=== PATIENT | female | born 1985 | race Caucasian/White ===

== ENCOUNTER 2017-12-27 22:35 | Emergency (ER) | payer MEDICAID, SELFPAY ==
[2017-12-27 23:04] VITALS: BP 151/71; PULSE 80; RESP 20; TEMP 37.1; O2SAT 99; BMI 44.2
[2017-12-27 23:32] VITALS: BP 155/74; PULSE 102; RESP 18; TEMP 36.8; O2SAT 98
--- NOTE | 2017-12-27 23:51 | HMH.EDGENADL ---
ED Disposition Clinical Impression: Pharyngitis Qualifiers: Pharyngitis/tonsillitis etiology: unspecified etiology Qualified Code(s): J02.9 - Acute pharyngitis, unspecified Disposition: Home, Self-Care Condition on Discharge: Good Instructions: DI for Pharyngitis/Tonsillopharyngitis -- Adult Additional Instructions: use meds and see pcp for follow up Prescriptions: cephALEXin [Keflex 500mg Cap] 500 mg PO TID #21 cap - Critical Care Critical Care Time: No Attestation: On 12/27/17, the high probability of a clinically significant, sudden or life threatening deterioration of the following system(s) required my full and direct attention, intervention and personal management. The time I documented below is in addition to time spent performing reported procedures but includes the following listed in this critical care notation. Medical Decision Making - Medical Records Medical records reviewed: Yes: I reviewed the patient's medical records. Vital Signs: 12/27/17 23:04 12/27/17 23:32 Temperature 98.8 F 98.2 F Temperature Source Oral Oral Pulse Rate [Right Radial] 80 102 H Respiratory Rate 20 18 Blood Pressure [Right Arm] 151/71 155/74 Blood Pressure Mean [Right Arm] 97 101 Blood Pressure Source [Right Arm] Automatic Cuff Blood Pressure Position [Right Arm] Sitting 02 Sat by Pulse Oximetry 99 98 Oxygen Delivery Method Room Air - Lab Data Lab results reviewed: Yes: I reviewed the patient's lab results. Lab Results 12/27/17 23:45: Influenza Type A Ag Negative, Influenza Type B Ag Negative, Group A Strep Rapid Negative Orders (Tests/Meds): ED MEDICATIONS Generic Name Dose Route Start Last Admin Trade Name Freq PRN Reason Stop Dose Admin Prednisone 20 mg 12/28/17 00:10 Deltasone 20mg Tablet PO 12/28/17 00:11 ONCE ONE Discontinued Medications Generic Name Dose Route Start Last Admin Trade Name Freq PRN Reason Stop Dose Admin Cephalexin HCl 500 mg 12/28/17 00:09 Cephalexin 500mg Capsule PO 12/28/17 00:10 ONCE ONE Protocol ORDERS Category Date Time Status Strep Screen Confirmation Stat Micro 12/27/17 23:45 Received - Billy Inquiry Pt receiving controlled substance: No General Adult HPI - General Chief complaint: PAIN Stated complaint: sore throat Time Seen by Provider: 12/27/17 23:51 Mode of Arrival: Ambulatory Source of Information: Patient, Medical Record Limitations: No Limitations Description of Symptoms (Recalled from ER Triage Doc. by RN): SORE THROAT, BILATERAL EAR PAIN X 2 DAYS - History of Present Illness HPI narrative: sore throat with no cough or rash over the last 2 days Onset (ago): day(s) Severity: moderate - Related Data Previous Rx's Medication Instructions Recorded cephALEXin [Keflex 500mg Cap] 500 mg PO TID #21 cap 12/28/17 Allergies Allergy/AdvReac Type Severity Reaction Status Date / Time sulfamethoxazole Allergy Intermediate Hives Verified 12/27/17 23:02 [From Bactrim] trimethoprim [From Bactrim] Allergy Intermediate Hives Verified 12/27/17 23:02 [facility] History I have reviewed the patient's past medical history: Yes Medical History: Denies:: Cancer, Diabetes Mellitus Type 1, Diabetes Mellitus Type 2, MRSA Amputation: No Fractures: No - Social History Smoking Status: Never smoker Alcohol Intake: never - Psychiatric History Expresses thoughts of harming self/others: None Suicide Plan Description: No Plan ROS Obtained: Yes All systems reviewed & no additional complaints - Constitutional Constitutional: Denies fever(s) - Eyes Eyes: Denies change in vision - ENT Ears, Nose, Mouth, and Throat: Reports otalgia, Denies hearing loss, Reports sore throat - Cardiovascular Cardiovascular: Denies chest pain at rest, Denies dyspnea - Respiratory Respiratory: No cough - Gastrointestinal Gastrointestingal: Denies: abdominal pain - Musculoskeletal Musculoskeletal: Denie
[2017-12-27 23:57] LABS: Strep Scrn Group A (Rapid) Negative (Negative)
[2017-12-28 00:29] VITALS: BP 134/74; PULSE 78; RESP 20; TEMP 37.1; O2SAT 97
== END 2017-12-28 00:30 | disposition home or self-care (01) ==
PROVIDERS: Emergency Provider Emergency Medicine
DX: J02.9 Acute pharyngitis, unspecified (principal); Z88.2 Allergy status to sulfonamides
CPT/HCPCS: 87275; 87276; 87430; 99283

== ENCOUNTER 2018-04-19 03:50 | Emergency (ER) | payer MEDICAID, SELFPAY ==
[2018-04-19 03:59] VITALS: BP 140/79; PULSE 82; RESP 16; TEMP 36.7; O2SAT 100; BMI 46.6
--- NOTE | 2018-04-19 04:02 | XR_ITS ---
XR hip RT 2-3V w/pelvis HISTORY: Posttraumatic pain ITS.REASON: fall ORDERING PHYSICIAN: Diego Knight MD PATIENT AGE: 33 years COMPARISON: None FINDINGS: No fracture or dislocation is evident. No significant degenerative change. No lytic or blastic change. Unremarkable soft tissues. Bilateral tubal occlusion devices are noted IMPRESSION: Negative hip
--- NOTE | 2018-04-19 04:02 | XR_ITS ---
XR knee RT 3V HISTORY: Posttraumatic pain ITS.REASON: fall ORDERING PHYSICIAN: Diego Knight MD PATIENT AGE: 33 years COMPARISON: None FINDINGS: No fracture or dislocation. No lytic or blastic change. Normal mineralization. No significant arthritic changes evident. No other significant findings IMPRESSION: Negative Knee
--- NOTE | 2018-04-19 04:27 | HMH.EDLOEX ---
ED Disposition Clinical Impression: Right knee sprain Qualifiers: Encounter type: initial encounter Involved ligament of knee: unspecified ligament Qualified Code(s): S83.91XA - Sprain of unspecified site of right knee, initial encounter Contusion of hip, right Qualifiers: Encounter type: initial encounter Qualified Code(s): S70.01XA - Contusion of right hip, initial encounter Disposition: Home, Self-Care Condition on Discharge: Good Instructions: Sprain Additional Instructions: ice and nsaif and see pcp for follow up and wt bearing as sukhdeep - Critical Care Critical Care Time: No Attestation: On 04/19/18, the high probability of a clinically significant, sudden or life threatening deterioration of the following system(s) required my full and direct attention, intervention and personal management. The time I documented below is in addition to time spent performing reported procedures but includes the following listed in this critical care notation. Medical Decision Making - Medical Records Medical records reviewed: Yes: I reviewed the patient's medical records. - Billy Inquiry Pt receiving controlled substance: No Vital Signs: 04/19/18 03:59 Temperature 98.1 F Temperature Source Oral Pulse Rate [Right Brachial] 82 Respiratory Rate 16 Blood Pressure [Right Arm] 140/79 Blood Pressure Mean [Right Arm] 99 02 Sat by Pulse Oximetry 100 Orders (Tests/Meds): ORDERS Category Date Time Status XR hip RT 2-3V w/pelvis Stat Exams 04/19/18 04:02 Taken XR knee RT 3V Stat Exams 04/19/18 04:02 Taken - Radiology Data #2 Image(s): Pelvis, Hip, Knee Image Reviewed: Yes I reviewed the patient's radiology image Preliminary Findings: No Fracture Seen Lower Extremity Injury HPI - General Chief Complaint: Extremity Injury, Lower Stated Complaint: Fall at Home 04/18 1830 Injured rt leg Time Seen by Provider: 04/19/18 04:27 Mode of Arrival: Wheelchair Source of Information: Patient, Significant Other, Medical Record Limitations: No Limitations Description of Symptoms (Recalled from ER Triage Doc. by RN): Chasing after her son around 1829 yesterday and tripped and fell in the pool. Now c/o right hip and right knee pain. - History of Present Illness HPI Narrative: after fall with rt knee and hip pain worse with ext and wt bearing MD complaint: hip injury, knee injury, fall Onset (ago): hour(s) Injury: Right: hip, knee Type of Injury: blunt Place: home Severity: moderate Exacerbating factors: weight bearing, movement Context: fall Associated symptoms: able to partially bear weight Other symptoms: none - Related Data Home Medications Medication Instructions Recorded Confirmed No Known Home Medications 04/19/18 04/19/18 Allergies Allergy/AdvReac Type Severity Reaction Status Date / Time sulfamethoxazole Allergy Intermediate Hives Verified 12/27/17 23:02 [From Bactrim] trimethoprim [From Bactrim] Allergy Intermediate Hives Verified 12/27/17 23:02 [facility] History I have reviewed the patient's past medical history: Yes Medical History: Denies:: Cancer, Diabetes Mellitus Type 1, Diabetes Mellitus Type 2, MRSA Amputation: No Fractures: No - Social History Smoking Status: Current every day smoker Alcohol Intake: never - Psychiatric History Expresses thoughts of harming self/others: None Suicide Plan Description: No Plan ROS Obtained: Yes All systems reviewed & no additional complaints - Constitutional Constitutional: Denies fever(s) - Eyes Eyes: Denies change in vision - ENT Ears, Nose, Mouth, and Throat: Denies sore throat - Cardiovascular Cardiovascular: Denies chest pain - Respiratory Respiratory: No cough - Gastrointestinal Gastrointestingal: Denies: abdominal pain - Genitourinary Female Genitourinary: Denies hematuria - Musculoskeletal Musculoskeletal: Reports as per HPI, Reports joint pain, Reports joint swelling, Reports limited range of abe
--- NOTE | 2018-04-19 04:30 | ED_ITS ---
ED Disposition Clinical Impression: Right knee sprain Qualifiers: Encounter type: initial encounter Involved ligament of knee: unspecified ligament Qualified Code(s): S83.91XA - Sprain of unspecified site of right knee , initial encounter Contusion of hip, right Qualifiers: Encounter type: initial encounter Qualified Code(s): S70.01XA - Contusion of right hip, initial encounter Disposition: Home, Self-Care Condition on Discharge: Good Instructions: Sprain Additional Instructions: ice and nsaif and see pcp for follow up and wt bearing as sukhdeep - Critical Care Critical Care Time: No Attestation: On 04/19/18, the high probability of a clinically significant, sudden or life threatening deterioration of the following system(s) required my full and direct attention, intervention and personal management. The time I documented below is in addition to time spent performing reported procedures but includes the following listed in this critical care notation. Medical Decision Making - Medical Records Medical records reviewed: Yes: I reviewed the patient's medical records. - Billy Inquiry Pt receiving controlled substance: No Vital Signs: 04/19/18 03:59 Temperature 98.1 F Temperature Source Oral Pulse Rate [Right Brachial] 82 Respiratory Rate 16 Blood Pressure [Right Arm] 140/79 Blood Pressure Mean [Right Arm] 99 02 Sat by Pulse Oximetry 100 Orders (Tests/Meds): ORDERS Category Date Time Status XR hip RT 2-3V w/pelvis Stat Exams 04/19/18 04:02 Taken XR knee RT 3V Stat Exams 04/19/18 04:02 Taken - Radiology Data #2 Image(s): Pelvis, Hip, Knee Image Reviewed: Yes I reviewed the patient's radiology image Preliminary Findings: No Fracture Seen Lower Extremity Injury HPI - General Chief Complaint: Extremity Injury, Lower Stated Complaint: Fall at Home 04/18 1830 Injured rt leg Time Seen by Provider: 04/19/18 04:27 Mode of Arrival: Wheelchair Source of Information: Patient, Significant Other, Medical Record Limitations: No Limitations Description of Symptoms (Recalled from ER Triage Doc. by RN): Chasing after her son around 1829 yesterday and tripped and fell in the pool. Now c/o right hip and right knee pain. - History of Present Illness HPI Narrative: after fall with rt knee and hip pain worse with ext and wt bearing MD complaint: hip injury, knee injury, fall Onset (ago): hour(s) Injury: Right: hip, knee Type of Injury: blunt Place: home Severity: moderate Exacerbating factors: weight bearing, movement Context: fall Associated symptoms: able to partially bear weight Other symptoms: none - Related Data Home Medications Medication Instructions Recorded Confirmed No Known Home Medications 04/19/18 04/19/18 Allergies Allergy/AdvReac Type Severity Reaction Status Date / Time sulfamethoxazole Allergy Intermediate Hives Verified 12/27/17 23:02 [From Bactrim] trimethoprim [From Bactrim] Allergy Intermediate Hives Verified 12/27/17 23:02 [facility] History I have reviewed the patient's past medical history: Yes Medical History: Denies:: Cancer, Diabetes Mellitus Type 1, Diabetes Mellitus Type 2, MRSA Amputation: No Fractures: No - Social History Smoking Status: Current every day smoker Alcohol Intake: never - Psychi
[2018-04-19 04:39] VITALS: BP 134/84; PULSE 87; RESP 16; TEMP 36.9; O2SAT 99
== END 2018-04-19 04:39 | disposition home or self-care (01) ==
PROVIDERS: Emergency Provider Emergency Medicine
DX: S83.91XA Sprain of unspecified site of right knee, initial encounter (principal); S70.01XA Contusion of right hip, initial encounter; W01.0XXA Fall on same level from slipping, tripping and stumbling without subsequent striking against object, initial encounter; Y93.11 Activity, swimming; Y92.016 Swimming-pool in single-family (private) house or garden as the place of occurrence of the external cause
CPT/HCPCS: 73502; 73562; 99282

== ENCOUNTER → 2018-08-16 13:48 | Outpatient (REF) | payer MEDICAID, SELFPAY ==
[2018-08-16 14:16] LABS: Basophils # 0.1 K/mm3 (0-0.2); Basophils % 0.8 % (0.1-2.0); Eosinophils # 0.3 K/mm3 (0.0-0.4); Eosinophils % 3.9 % (0.1-12.0); Hematocrit 42.1 % (37.0-47.0); Hemoglobin 13.4 g/dL (12.2-16.2); Lymphocytes # 2.2 K/mm3 (0.7-4.5); Lymphocytes % 33.4 K/mm3 (10-50); Mean Corpuscular HGB Conc 31.9 g/dL (31.8-35.4); Mean Corpuscular Volume 87.9 fl (81-99); Mean Platelet Volume 7.1 fl (7.4-10.4); Monocytes # 0.4 K/mm3 (0.1-1.0); Monocytes % 6.1 % (1.7-9.3); Neutrophils # 3.7 K/mm3 (1.8-7.8); Neutrophils % 55.8 % (37.0-80.0); Platelet Count 359 K/mm3 (142-424); Red Blood Count 4.78 M/mm3 (4.20-5.40); Red Cell Distribution Width 13.4 % (11.5-17.5); White Blood Count 6.7 K/mm3 (4.8-10.8)
[2018-08-16 14:36] LABS: Alanine Aminotransferase 33 U/L (12-78); Albumin Level 3.8 gm/dL (3.4-5.0); Alkaline Phosphatase 83 U/L (46-116); Anion Gap 13.1 mEq/L (5-15); Aspartate Amino Transferase 23 U/L (15-37); Bilirubin,Total 0.6 mg/dL (0.2-1.0); Blood Urea Nitrogen 7 mg/dL (7-18); Calcium 8.9 mg/dL (8.5-10.1); Carbon Dioxide 28 mmol/L (21.0-32.0); Chloride 103 mmol/L (98-107); Chol/HDL Ratio 3.9 (1-3.5); Cholesterol 156 mg/dL (140-200); Creatinine,Serum 0.64 mg/dL (0.55-1.02); Estimated Glomerular Filt Rate 106 ml/min (>60); GFR (African American) 128 ML/MIN (>60); Globulin 3.8 gm/dl (1.3-3.2); Glucose 95 mg/dL (74-106); HDL Cholesterol 40 mg/dL (29-89); LDL Cholesterol 101 mg/dL (0-130); Potassium 4.1 mmoL/L (3.5-5.1); Sodium 140 mmol/L (136-145); T4 (Thyroxine) 8.3 ug/dl (4.7-13.3); Thyroid Stimulating Hormone 1.64 uIU/ml (0.358-3.740); Total Protein,Serum 7.6 gm/dL (6.4-8.2); Triglycerides 77 mg/dL (30-200); VLDL Cholesterol 15 mg/dL (0-40)
[2018-08-16 15:07] LABS: Hemoglobin A1C 5.6 % (0.0-7.0)
[2018-08-17 15:57] LABS: Vitamin D 25 Hydroxy 22.2 ng/mL (30.0-100.0)
== END ==
LOC: LAB 13:48
PROVIDERS: Visit Provider Nurse Practitioner Family
DX: R53.83 Other fatigue (principal); E55.9 Vitamin D deficiency, unspecified
CPT/HCPCS: 80053; 80061; 82652; 83036; 84436; 84443; 85025

== ENCOUNTER 2019-03-20 16:44 | Emergency (ER) | payer MEDICAID, SELFPAY ==
[2019-03-20 17:04] VITALS: BP 141/75; PULSE 89; RESP 18; TEMP 36.9; O2SAT 97; BMI 47.5
--- NOTE | 2019-03-20 17:05 | HMH.EDGENADL ---
ED Disposition Clinical Impression: Lower extremity edema Disposition: Home, Self-Care Condition on Discharge: Good Prescriptions: Furosemide [Lasix 20mg tab] 20 mg PO DAILY 30 Days #30 tab Referrals: Provider,Referral, MD [Primary Care Provider] - Time of Disposition: 19:39 - Critical Care Critical Care Time: No Attestation: On 03/20/19, the high probability of a clinically significant, sudden or life threatening deterioration of the following system(s) required my full and direct attention, intervention and personal management. The time I documented below is in addition to time spent performing reported procedures but includes the following listed in this critical care notation. Medical Decision Making - Medical Records Medical records reviewed: Yes: I reviewed the patient's medical records. - Billy Inquiry Pt receiving controlled substance: No Billy was queried for this patient: No Vital Signs: 03/20/19 17:04 Temperature 98.5 F Temperature Source Oral Pulse Rate [Left Radial] 89 Respiratory Rate 18 Blood Pressure [Right Arm] 141/75 H Blood Pressure Mean [Right Arm] 97 Blood Pressure Source [Right Arm] Automatic Cuff Blood Pressure Position [Right Arm] Sitting 02 Sat by Pulse Oximetry 97 Oxygen Delivery Method Room Air - Lab Data Lab results reviewed: Yes: I reviewed the patient's lab results. Lab Results 03/20/19 18:06: WBC 7.4, RBC 4.27, Hgb 12.0 L, Hct 36.3 L, MCV 85.1, MCH 28.2, MCHC 33.1, RDW 13.4, Plt Count 291, MPV 6.5 L, Neut % (Auto) 56.1, Lymph % (Auto) 31.7, [place] % (Auto) 7.3, Eos % (Auto) 4.2, Baso % (Auto) 0.6, Neut # (Auto) 4.2, Lymph # (Auto) 2.4, [place] # (Auto) 0.5, Eos # (Auto) 0.3, Baso # (Auto) 0.1 03/20/19 18:06: Sodium 140, Potassium 3.8, Chloride 106, Carbon Dioxide 27, Anion Gap 10.8, BUN 11, Creatinine 0.69, Estimated Creat Clear 89, Estimated GFR 96, Est GFR ( Amer) 116, Glucose 93, Calcium 8.4 L, Total Bilirubin 0.4, AST 13 L, ALT 28, Alkaline Phosphatase 73, Total Protein 7.0, Albumin 3.2 L, Globulin 3.8 H, Albumin/Globulin Ratio 0.8 L Result diagrams: 03/20/19 18:06 03/20/19 18:06 Orders (Tests/Meds): ED MEDICATIONS Generic Name Dose Route Start Last Admin Trade Name Kristen PRN Reason Stop Dose Admin Furosemide 20 mg 03/21/19 09:00 Lasix 20mg Tablet PO 04/20/19 08:59 DAILY CAPRICE General Adult HPI - General Stated complaint: fEET SWOLLEN Time Seen by Provider: 03/20/19 17:05 Mode of Arrival: Ambulatory Source of Information: Patient Limitations: No Limitations - Related Data Home Medications Medication Instructions Recorded Confirmed albuterol sulfate HFA 90 2 puff INHALATION Q6H PRN 08/16/18 03/20/19 mcg/actuation aerosol inhaler Ergocalciferol (Vitamin D2) 50,000 unit PO QWEEK 12/25/18 03/20/19 [Drisdol] Previous Rx's Medication Instructions Recorded Furosemide [Lasix 20mg tab] 20 mg PO DAILY 30 Days #30 tab 03/20/19 Allergies Allergy/AdvReac Type Severity Reaction Status Date / Time sulfamethoxazole Allergy Intermediate Hives Verified 10/24/18 19:01 [From Bactrim] trimethoprim [From Bactrim] Allergy Intermediate Hives Verified 10/24/18 19:01 [facility] History - Hepatitis A Screen Attestation statement:: This patient has been screened for Hepatitis A risk factors. I have reviewed the patient's past medical history: Yes Medical History: Reports:: Asthma, Depression, Heart Murmur Denies:: Cancer, Diabetes Mellitus Type 1, Diabetes Mellitus Type 2, MRSA, Pulmonary Embolism, Seizures Laterality Cases: Bilateral: Carpal Tunnel Release Other Surgeries: Yes: Other Amputation: No Fractures: No Comment: Right foot. - Social History Smoking Status: Never smoker Alcohol Intake: never Substance Use Type: denies use Occupational Status: unemployed Housing: house - Psychiatric History Pschychiatric History:: Reports:: Depression Family Hx:: Heart Attack, Hypertension, Hyperlipidemia, Str
--- NOTE | 2019-03-20 17:16 | ED_ITS ---
ED Disposition Clinical Impression: Lower extremity edema Disposition: Home, Self-Care Condition on Discharge: Good Prescriptions: Furosemide [Lasix 20mg tab] 20 mg PO DAILY 30 Days #30 tab Referrals: Provider,Referral, [Primary Care Provider] - Time of Disposition: 19:39 - Critical Care Critical Care Time: No Attestation: On 03/20/19, the high probability of a clinically significant, sudden or life threatening deterioration of the following system(s) required my full and direct attention, intervention and personal management. The time I documented below is in addition to time spent performing reported procedures but includes the follo wing listed in this critical care notation. Medical Decision Making - Medical Records Medical records reviewed: Yes: I reviewed the patient's medical records. - Billy Inquiry Pt receiving controlled substance: No Billy was queried for this patient: No Vital Signs: 03/20/19 17:04 Temperature 98.5 F Temperature Source Oral Pulse Rate [Left Radial] 89 Respiratory Rate 18 Blood Pressure [Right Arm] 141/75 H Blood Pressure Mean [Right Arm] 97 Blood Pressure Source [Right Arm] Automatic Cuff Blood Pressure Position [Right Arm] Sitting 02 Sat by Pulse Oximetry 97 Oxygen Delivery Method Room Air - Lab Data Lab results reviewed: Yes: I reviewed the patient's lab results. Lab Results 03/20/19 18:06: WBC 7.4, RBC 4.27, Hgb 12.0 L, Hct 36.3 L, MCV 85.1, MCH 28.2, MCHC 33.1, RDW 13.4, Plt Count 291, MPV 6.5 L, Neut % (Auto) 56.1, Lymph % (Auto) 31.7, [place] % (Auto) 7.3, Eos % (Auto) 4.2, Baso % (Auto) 0.6, Neut # (Auto) 4.2, Lymph # (Auto) 2.4, [place] # (Auto) 0.5, Eos # (Auto) 0.3, Baso # (Auto) 0.1 03/20/19 18:06: Sodium 140, Potassium 3.8, Chloride 106, Carbon Dioxide 27, Anion Gap 10.8, BUN 11, Creatinine 0.69, Estimated Creat Clear 89, Estimated GFR 96, Est GFR ( Amer) 116, Glucose 93, Calcium 8.4 L, Total Bilirubin 0.4, AST 13 L, ALT 28, Alkaline Phosphatase 73, Total Protein 7.0, Albumin 3.2 L, Globulin 3.8 H, Albumin/Globulin Ratio 0.8 L Result diagrams: 03/20/19 18:06 03/20/19 18:06 Orders (Tests/Meds): ED MEDICATIONS Generic Name Dose Route Start Last Admin Trade Name Freq PRN Reason Stop Dose Admin Furosemide 20 mg 03/21/19 09:00 Lasix 20mg Tablet PO 04/20/19 08:59 DAILY CAPRICE General Adult HPI - General Stated complaint: fEET SWOLLEN Time Seen by Provider: 03/20/19 17:05 Mode of Arrival: Ambulatory Source of Information: Patient Limitations: No Limitations - Related Data Home Medications Medication Instructions Recorded Confirmed albuterol sulfate HFA 90 2 puff INHALATION Q6H PRN 08/16/18 03/20/19 mcg/actuation aerosol inhaler Ergocalciferol (Vitamin D2) 50,000 unit PO QWEEK 12/25/18 03/20/19 [Drisdol] Previous Rx's Medication Instructions Recorded Furosemide [Lasix 20mg tab] 20 mg PO DAILY 30 Days #30 tab 03/20/19 Allergies Allergy/AdvReac Type Severity Reaction Status Date / Time sulfamethoxazole Al
[2019-03-20 18:19] LABS: Basophils # 0.1 K/mm3 (0-0.2); Basophils % 0.6 % (0.1-2.0); Eosinophils # 0.3 K/mm3 (0.0-0.4); Eosinophils % 4.2 % (0.1-12.0); Hematocrit 36.3 % (37.0-47.0); Lymphocytes # 2.4 K/mm3 (0.7-4.5); Lymphocytes % 31.7 % (10-50); Mean Corpuscular HGB Conc 33.1 g/dL (31.8-35.4); Mean Corpuscular Hemoglobin 28.2 pg (27.0-31.2); Mean Corpuscular Volume 85.1 fl (81-99); Mean Platelet Volume 6.5 fl (7.4-10.4); Monocytes # 0.5 K/mm3 (0.1-1.0); Monocytes % 7.3 % (1.7-9.3); Neutrophils # 4.2 K/mm3 (1.8-7.8); Neutrophils % 56.1 % (37.0-80.0); Platelet Count 291 K/mm3 (142-424); Red Blood Count 4.27 M/mm3 (4.20-5.40); Red Cell Distribution Width 13.4 % (11.5-17.5); White Blood Count 7.4 K/mm3 (4.8-10.8)
[2019-03-20 18:41] LABS: Alanine Aminotransferase 28 U/L (12-78); Albumin Level 3.2 gm/dL (3.4-5.0); Albumin/Globulin Ratio 0.8 (1.1-1.8); Alkaline Phosphatase 73 U/L (46-116); Anion Gap 10.8 mEq/L (5-15); Aspartate Amino Transferase 13 U/L (15-37); Bilirubin,Total 0.4 mg/dL (0.2-1.0); Blood Urea Nitrogen 11 mg/dL (7-18); Calcium 8.4 mg/dL (8.5-10.1); Carbon Dioxide 27 mmol/L (21.0-32.0); Chloride 106 mmol/L (98-107); Creatinine Clearance Estimated 89 mL/min (50-200); Creatinine,Serum 0.69 mg/dL (0.55-1.02); Estimated Glomerular Filt Rate 96 ml/min (>60); GFR (African American) 116 ML/MIN (>60); Globulin 3.8 gm/dl (1.3-3.2); Glucose 93 mg/dL (74-106); Potassium 3.8 mmoL/L (3.5-5.1); Sodium 140 mmol/L (136-145)
[2019-03-20 19:45] VITALS: BP 138/73; PULSE 87; RESP 17; TEMP 36.9; O2SAT 98
[2019-03-20 19:48] VITALS: BP 129/74; PULSE 84; RESP 15; TEMP 37; O2SAT 96
== END 2019-03-20 19:48 | disposition home or self-care (01) ==
PROVIDERS: Emergency Provider Emergency Medicine
DX: R60.0 Localized edema (principal); J45.909 Unspecified asthma, uncomplicated; F33.1 Major depressive disorder, recurrent, moderate
CPT/HCPCS: 36415; 80053; 85025; 99282

== ENCOUNTER 2019-06-05 09:21 | Observation (INO) ==
[2019-06-05 09:51] LABS: Basophils % 0.4 % (0.1-2.0); Eosinophils # 0.4 K/mm3 (0.0-0.4); Hematocrit 39.1 % (37.0-47.0); Hemoglobin 12.6 g/dL (12.2-16.2); Lymphocytes # 1.6 K/mm3 (0.7-4.5); Mean Corpuscular HGB Conc 32.3 g/dL (31.8-35.4); Mean Corpuscular Volume 86.9 fl (81-99); Mean Platelet Volume 6.8 fl (7.4-10.4); Monocytes # 0.4 K/mm3 (0.1-1.0); Monocytes % 4.4 % (1.7-9.3); Neutrophils # 7.4 K/mm3 (1.8-7.8); Neutrophils % 75.1 % (37.0-80.0); Platelet Count 330 K/mm3 (142-424); Red Cell Distribution Width 13.7 % (11.5-17.5); White Blood Count 9.8 K/mm3 (4.8-10.8)
[2019-06-05 10:04] LABS: Anion Gap 12.6 mEq/L (5-15); Blood Urea Nitrogen 8 mg/dL (7-18); Calcium 8.7 mg/dL (8.5-10.1); Carbon Dioxide 27 mmol/L (21.0-32.0); Chloride 103 mmol/L (98-107); Glucose 121 mg/dL (74-106); Sodium 139 mmol/L (136-145)
--- NOTE | 2019-06-05 10:11 | Emergency Department Note ---
ED Disposition Clinical Impression: Pneumonia Disposition: Admitted as Observation Condition on Discharge: Fair Instructions: Pneumonia-Adult Referrals: Provider,Referral, [Primary Care Provider] - Time of Disposition: 11:09 - Critical Care Critical Care Time: No Attestation: On 06/05/19, the high probability of a clinically significant, sudden or life threatening deterioration of the following system(s) required my full and direct attention, intervention and personal management. The time I documented below is in addition to time spent performing reported procedures but includes the following listed in this critical care notation. Medical Decision Making - Medical Records Medical records reviewed: Yes: I reviewed the patient's medical records. - Billy Inquiry Pt receiving controlled substance: No Billy was queried for this patient: No Vital Signs: 06/05/19 09:24 06/05/19 09:44 06/05/19 10:03 Temperature 98.9 F Temperature Source Oral Pulse Rate 98 H Pulse Rate [Right Radial] 101 H 101 H Respiratory Rate 20 19 Blood Pressure [Right Arm] 131/85 95/40 L Blood Pressure Mean [Right Arm] 100 58 Blood Pressure Source [Right Arm] Automatic Cuff Automatic Cuff Blood Pressure Position [Right Arm] Sitting Sitting 02 Sat by Pulse Oximetry 95 95 Oxygen Delivery Method Room Air Room Air 06/05/19 11:05 Temperature Temperature Source Pulse Rate 104 H Pulse Rate [Right Radial] Respiratory Rate Blood Pressure [Right Arm] Blood Pressure Mean [Right Arm] Blood Pressure Source [Right Arm] Blood Pressure Position [Right Arm] 02 Sat by Pulse Oximetry Oxygen Delivery Method - Lab Data Lab results reviewed: Yes: I reviewed the patient's lab results. Lab Results 06/05/19 09:30: WBC 9.8, RBC 4.50, Hgb 12.6, Hct 39.1, MCV 86.9, MCH 28.1, MCHC 32.3, RDW 13.7, Plt Count 330, MPV 6.8 L, Neut % (Auto) 75.1, Lymph % (Auto) 16.0, [place] % (Auto) 4.4, Eos % (Auto) 4.0, Baso % (Auto) 0.4, Neut # (Auto) 7.4, Lymph # (Auto) 1.6, [place] # (Auto) 0.4, Eos # (Auto) 0.4, Baso # (Auto) 0.0 06/05/19 09:30: Sodium 139, Potassium 3.6, Chloride 103, Carbon Dioxide 27, Anion Gap 12.6, BUN 8, Creatinine 0.72, Estimated Creat Clear 85, Estimated GFR 92, Est GFR ( Amer) 111, Glucose 121 H, Calcium 8.7, Troponin I < 0.02 06/05/19 09:30: Lactate 1.4 Result diagrams: 06/05/19 09:30 06/05/19 09:30 Orders (Tests/Meds): ED MEDICATIONS Generic Name Dose Route Start Last Admin Trade Name Freq PRN Reason Stop Dose Admin Ceftriaxone Sodium 2 gm/ 50 mls @ 100 mls/hr 06/05/19 11:15 Sodium Chloride IV 06/19/19 11:14 Q24H [facility] Protocol Azithromycin 500 mg/ Sodium 250 mls @ 250 mls/hr 06/05/19 11:15 Chloride IV 06/19/19 11:14 Q24H [facility] Protocol Discontinued Medications Generic Name Dose Route Start Last Admin Trade Name Freq PRN Reason Stop Dose Admin Albuterol/Ipratropium 3 ml 06/05/19 09:33 06/05/19 09:42 Duoneb 3ml [facility] 06/05/19 09:34 3 ml ONCE ONE Administration Albuterol/Ipratropium 3 ml 06/05/19 10:52 06/05/19 11:05 Duoneb 3ml [facility] 06/05/19 10:53 3 ml ONCE ONE Administration Ketorolac Tromethamine 30 mg 06/05/19 10:14 06/05/19 10:21 Toradol 30mg/Ml Vial IV 06/05/19 10:15 30 mg ONCE ONE Administration Methylprednisolone Sodium Succinate 125 mg 06/05/19 10:14 06/05/19 10:21 Solu-Medrol 125mg/2ml Vial IV 06/05/19 10:15 125 mg ONCE ONE Administration Ondansetron HCl 8 mg 06/05/19 10:14 06/05/19 10:21 Zofran 4mg/2ml Vial IV 06/05/19 10:15 8 mg ONCE ONE Administration ORDERS Category Date Time Status Blood Culture Stat Micro 06/05/19 09:31 Received - Physician Consults Physician Consulted: alfredo Time: 11:08 Reason -: Admission General Adult HPI - General Chief complaint: Chest Pain Stated complaint: Chest Pain Time Seen by Provider: 06/05/19 10:12 Mode of Arrival: Ambulatory Source of Information: Patient Limitations: No Limitations Description of Symptoms (Recalled from ER Triage Doc. by RN): Pt reports began having productive cough yesterday, states became SOA feeling lastnight and woke up with chest pressure this morning. Pt denies fevers. - History of Present Illness HPI narrative: asthmatic all her life, now with flare which started with cough yesterday - Related Data Home Medications Medication Instructions Recorded Confirmed albuterol sulfate HFA 90 2 puff INHALATION Q6H PRN 08/16/18 03/20/19 mcg/actuation aerosol inhaler Ergocalciferol (Vitamin D2) 50,000 unit PO QWEEK 12/25/18 03/20/19 [Drisdol] Allergies Allergy/AdvReac Type Severity Reaction Status Date / Time sulfamethoxazole Allergy Intermediate Hives Verified 10/24/18 19:01 [From Bactrim] trimethoprim [From Bactrim] Allergy Intermediate Hives Verified 10/24/18 19:01 [facility] History - Hepatitis A Screen Drug use history?: No High risk sexual behaviors?: No History of sexually transmitted infection?: No Currently employed?: No Childcare worker?: No Do you have indoor plumbing?: Yes Do you have electricity?: Yes Attestation statement:: This patient has been screened for Hepatitis A risk factors. I have reviewed the patient's past medical history: Yes Medical History: Reports:: Asthma, Depression, Heart Murmur Denies:: Cancer, Diabetes Mellitus Type 1, Diabetes Mellitus Type 2, MRSA, Pulmonary Embolism, Seizures Laterality Cases: Bilateral: Carpal Tunnel Release Other Surgeries: Yes: Other Amputation: No Fractures: No Comment: Right foot. - Social History Smoking Status: Never smoker Alcohol Intake: never Substance Use Type: denies use Occupational Status: unemployed Housing: house - Psychiatric History Pschychiatric History:: Reports:: Depression Family Hx:: Heart Attack, Hypertension, Hyperlipidemia, Stroke, Diabetes ROS Obtained: Yes All systems reviewed & no additional complaints - Constitutional Constitutional: Reports chills, Denies fever(s) - Cardiovascular Cardiovascular: Denies chest pain, Denies chest pain at rest, Denies dyspnea - Respiratory Respiratory: Yes chest congestion, Yes cough, Yes dyspnea, Yes wheezing - Gastrointestinal Gastrointestingal: Reports: vomiting, other (immediately after solumedrol) - Musculoskeletal Musculoskeletal: Denies joint stiffness, Denies joint swelling - Integumentary/Breasts Skin/Breast: Denies rash, Denies skin pain - Neurologic Neurologic: Denies headache(s) - Hematologic/Lymphatic Henatologic/Lymphatic: Denies easy bleeding, Denies easy bruising Physical Exam - General General appearance: alert, in no apparent distress - Head Head exam: atraumatic, normocephalic, normal inspection - Eye Eye exam: Present: normal appearance, PERRL, EOMI - ENT ENT exam: Present: normal exam, normal oropharynx, mucous membranes moist, TM's normal bilaterally, normal external ear exam - Neck Neck exam: Present: normal inspection, full ROM, trachea midline. Absent: meningismus, lymphadenopathy - Chest Chest inspection: Present: normal inspection, symmetric chest wall rise. Abse nt: tenderness - Respiratory Respiratory exam: Present: wheezes. Absent: normal lung sounds bilaterally, respiratory distress, accessory muscle use - Cardiovascular Cardiovascular exam: Present: regular rate - Abdominal Exam Abdominal exam: Present: soft, normal bowel sounds. Absent: distention, tenderness, guarding - Extremities Exam Extremities exam: Present: normal inspection, full ROM, normal capillary refill, pedal edema, other (1+, negative kristofer's sign). Absent: calf tenderness - Back Exam Back exam: Present: normal inspection. Absent: tenderness - Neurological Exam Neurological exam: Present: alert, oriented X3 - Psychiatric Psychiatric exam: Present: normal affect, normal mood - Skin Skin exam: Present: warm, dry, intact, normal color
--- NOTE | 2019-06-05 14:36 | History & Physical Report ---
*Admission Date: 06/05/19 *Chief complaint: Cough/wheezing/shortness of air *History of present illness: 34-year-old white female with history of asthma, who has been treated with as needed albuterol nebulizer treatments over the past several years. She reports that she "used to take a daily inhaler" but apparently has not had 1 of these in a long time. She sees a primary physician in [place], [place] but has recently moved to [facility] and became short of air over the past couple of days at her home in spite of using her nebulizer machine a couple of times yesterday and this morning. She became very short of air today and came to the emergency department where she was found to have lobar pneumonia, dyspnea, tachycardia and asthma exacerbation and was admitted to the hospital. [facility] History I have reviewed the patient's past medical history: Yes Medical History: Reports:: Asthma, Depression, Heart Murmur Denies:: Cancer, Diabetes Mellitus Type 1, Diabetes Mellitus Type 2, MRSA, Pulmonary Embolism, Seizures *Have you ever received a pneumonia vaccine?: No *Have you received a flu vaccine this season?: Yes Comment:: Also has obstructive sleep apnea Laterality Cases: Bilateral: Carpal Tunnel Release Other Surgeries: Yes: Other (RESTLESS LEGS) Amputation: No Fractures: No - *Social History Educational Level: Attended High School Smoking Status: Never smoker Alcohol Intake: never Substance Use Type: denies use *Occupational Status:: unemployed Housing: house *Travel in the last 8 weeks: None - Psychiatric History Pschychiatric History:: Reports:: Depression Family Hx:: Heart Attack, Hypertension, Hyperlipidemia, Stroke, Diabetes Review of Systems - Review of Systems Review of systems:: pertinent systems reviewed and negative unless documented below Patient denies cardiac chest pain, denies ankle swelling, denies ENT symptoms, denies productive cough. Denies GI issues or FISHER EEL issues. - *Neurologic Denies headache(s) Meds Home Medications Medication Instructions Recorded Confirmed Type albuterol sulfate HFA 90 2 puff INHALATION Q6H PRN 08/16/18 06/05/19 History mcg/actuation aerosol inhaler Ergocalciferol (Vitamin D2) 50,000 unit PO QWEEK 12/25/18 06/05/19 History [Drisdol] Fluoxetine HCl [Prozac] 20 mg PO DAILY 06/05/19 06/05/19 History Ropinirole HCl [Requip 0.25mg 0.25 mg PO HS 06/05/19 06/05/19 History Tablet] Allergies Allergy/AdvReac Type Severity Reaction Status Date / Time sulfamethoxazole Allergy Intermediate Hives Verified 10/24/18 19:01 [From Bactrim] trimethoprim [From Bactrim] Allergy Intermediate Hives Verified 10/24/18 19:01 Exam Vital signs and Labs for Last 24 Hours: Temp Pulse Resp BP Pulse Ox 98.7 F 98 H 18 133/65 97 06/05/19 12:08 06/05/19 13:40 06/05/19 12:08 06/05/19 12:08 06/05/19 13:40 Laboratory Results - last 24 hr 06/05/19 09:30: WBC 9.8, RBC 4.50, Hgb 12.6, Hct 39.1, MCV 86.9, MCH 28.1, MCHC 32.3, RDW 13.7, Plt Count 330, MPV 6.8 L, Neut % (Auto) 75.1, Lymph % (Auto) 16.0, [place] % (Auto) 4.4, Eos % (Auto) 4.0, Baso % (Auto) 0.4, Neut # (Auto) 7.4, Lymph # (Auto) 1.6, [place] # (Auto) 0.4, Eos # (Auto) 0.4, Baso # (Auto) 0.0 06/05/19 09:30: Sodium 139, Potassium 3.6, Chloride 103, Carbon Dioxide 27, Anion Gap 12.6, BUN 8, Creatinine 0.72, Estimated Creat Clear 85, Estimated GFR 92, Est GFR ( Amer) 111, Glucose 121 H, Calcium 8.7, Troponin I < 0.02 06/05/19 09:30: Lactate 1.4 I & O for Last 24 hours: Intake & Output 06/03/19 06/04/19 06/05/19 06/06/19 11:59 11:59 11:59 11:59 Weight 275 lb 283 lb 3 oz Narrative: Patient is pleasant, talkative, alert and oriented x3. Morbid obesity as noted, limits her exam accuracy and all aspects of her care. ENT exam clear, no JVD. Lungs have diffuse expiratory wheezes but symmetric air entry. Abdomen soft and nontender. Heart rate regular without murmurs. No perfusion deficits. No neurologic deficits. Assessment and Plan (1) Asthma with acute exacerbation Current visit: Yes Status: Acute Category: Medical Code(s): J45.901 - Unspecified asthma with (acute) exacerbation Agree with admission, IV steroids and fluids, oxygen support if needed, add inhaled steroids to her regimen, hopefully we can extend her home with this tomorrow if discharged. (2) Pickwickian syndrome Current visit: Yes Status: Acute Category: Medical Code(s): E66.2 - Morbid (severe) obesity with alveolar hypoventilation Poor prognosis related to BMI issue (3) Hypoventilation associated with obesity syndrome Current visit: Yes Status: Acute Category: Medical Code(s): E66.2 - Morbid (severe) obesity with alveolar hypoventilation (4) Pneumonia Current visit: Yes Status: Acute Category: Medical Code(s): J18.9 - Pneumo ketan, unspecified organism Agree with antibiotics from ER.
[2019-06-06 06:30] LABS: Calcium 8.6 mg/dL (8.5-10.1)
[2019-06-06 07:14] LABS: Anion Gap 6.1 mEq/L (5-15)
[2019-06-06 07:33] LABS: Basophils % 0.1 % (0.1-2.0); Eosinophils % 0.1 % (0.1-12.0); Lymphocytes # 1.4 K/mm3 (0.7-4.5); Lymphocytes % 9.4 % (10-50); Mean Corpuscular HGB Conc 31.4 g/dL (31.8-35.4); Mean Corpuscular Volume 89.1 fl (81-99); Mean Platelet Volume 6.7 fl (7.4-10.4); Monocytes # 0.7 K/mm3 (0.1-1.0); Monocytes % 4.8 % (1.7-9.3); Neutrophils # 12.6 K/mm3 (1.8-7.8); Neutrophils % 85.8 % (37.0-80.0); Platelet Count 347 K/mm3 (142-424); Red Blood Count 3.93 M/mm3 (4.20-5.40); White Blood Count 14.7 K/mm3 (4.8-10.8)
--- NOTE | 2019-06-06 07:35 | Pharmacy Consult Notes ---
[facility] Pharmacy VTE Monitoring - Patient Demographics Admission date: 06/05/19 Report Date: 06/06/19 Time: 07:35 Allergies/Adverse Reactions: Patient Allergies sulfamethoxazole [From Bactrim] Allergy (Intermediate, Verified 10/24/18 19:01) Hives trimethoprim [From Bactrim] Allergy (Intermediate, Verified 10/24/18 19:01) Hives Height: 1.57 m Weight: 128.452 kg Patient Problems: Current Active Problems Pneumonia (Acute) Pickwickian syndrome (Acute) Asthma with acute exacerbation (Acute) Pickwickian syndrome (Acute) Hypoventilation associated with obesity syndrome (Acute) - VTE Risk Labs: VTE Related Lab Results Hgb 12.6 g/dL (12.2-16.2) 06/05/19 09:30 Hct 39.1 % (37.0-47.0) 06/05/19 09:30 Plt Count 330 K/mm3 (142-424) 06/05/19 09:30 BUN 6 mg/dL (7-18) L 06/06/19 05:48 Creatinine 0.70 mg/dL (0.55-1.02) 06/06/19 05:48 Estimated Creat Clear 88 mL/min (50-200) 06/06/19 05:48 VTE Score: 3 VTE Risk Level: Low Risk - Prophylaxis VTE Prophylaxis Ordered?: Yes Types of VTE Prophylaxis: TEDS Knee High Location of Applied Device: Bilateral Lower Extremeties - VTE Diagnosis Confirmed Treatment or plan recommended: Continue Current Treatment
[2019-06-06 07:46] LABS: Hemoglobin 11.2 g/dL (12.2-16.2)
--- NOTE | 2019-06-06 08:59 | Progress Note ---
Internal Medicine - PN: Subj *Date: 06/06/19 *Time: 08:30 Interval history: Did well overnight. Feeling better this morning. still SOA, though improved. Using O2 still. less respiratory distress. No Fevers, no N/V/D. tolerating meds and PO intake. Exam Vital signs and Labs for Last 24 Hours: Temp Pulse Resp BP Pulse Ox 98.3 F 101 H 19 92/48 L 97 06/06/19 08:00 06/06/19 08:00 06/06/19 08:00 06/06/19 08:00 06/06/19 08:00 Laboratory Results - last 24 hr 06/05/19 09:30: WBC 9.8, RBC 4.50, Hgb 12.6, Hct 39.1, MCV 86.9, MCH 28.1, MCHC 32.3, RDW 13.7, Plt Count 330, MPV 6.8 L, Neut % (Auto) 75.1, Lymph % (Auto) 16.0, [place] % (Auto) 4.4, Eos % (Auto) 4.0, Baso % (Auto) 0.4, Neut # (Auto) 7.4, Lymph # (Auto) 1.6, [place] # (Auto) 0.4, Eos # (Auto) 0.4, Baso # (Auto) 0.0 06/05/19 09:30: Sodium 139, Potassium 3.6, Chloride 103, Carbon Dioxide 27, Anion Gap 12.6, BUN 8, Creatinine 0.72, Estimated Creat Clear 85, Estimated GFR 92, Est GFR ( Amer) 111, Glucose 121 H, Calcium 8.7, Troponin I < 0.02 06/05/19 09:30: Lactate 1.4 06/06/19 05:48: WBC 14.7 H D, RBC 3.93 L, Hgb 11.2 L D, Hct 35.0 L, MCV 89.1, MCH 28.0, MCHC 31.4 L, RDW 14.0, Plt Count 347, MPV 6.7 L, Neut % (Auto) 85.8 H, Lymph % (Auto) 9.4 L, [place] % (Auto) 4.8, Eos % (Auto) 0.1, Baso % (Auto) 0.1, Neut # (Auto) 12.6 H, Lymph # (Auto) 1.4, [place] # (Auto) 0.7, Eos # (Auto) 0.0, Baso # (Auto) 0.0 06/06/19 05:48: Sodium 130 L, Potassium 4.1, Chloride 103, Carbon Dioxide 25, Anion Gap 6.1, BUN 6 L, Creatinine 0.70, Estimated Creat Clear 88, Estimated GFR 95, Est GFR ( Amer) 115, Glucose 177 H D, Calcium 8.6 I & O for Last 24 hours: Intake & Output 06/03/19 06/04/19 06/05/19 06/06/19 23:59 23:59 23:59 23:59 Intake Total 480 / 480 0 / 0 Balance 480 / 480 0 / 0 Weight 128.452 kg 128.452 kg Microbiology Reports for the Last 24 Hours: Microbiology 06/05/19 18:43 Sputum - Expectorated Sputum Gram Stain - Final Narrative: Patient is pleasant, talkative, alert and oriented x3 Morbid obesity as noted, limits her exam accuracy and all aspects of her care. ENT exam clear, no JVD, NC in place Lungs have diffuse expiratory wheezes, diffuse rhonchi, interval improvement on Air movement. symmetric air entry Abdomen soft and nontender. Heart rate regular without murmurs. No perfusion deficits. No neurologic deficits. Assessment and Plan (1) Asthma with acute exacerbation Current visit: Yes Status: Acute Category: Medical Code(s): J45.901 - Unspecified asthma with (acute) exacerbation (2) Pickwickian syndrome Current visit: Yes Status: Acute Category: Medical Code(s): E66.2 - Morbid (severe) obesity with alveolar hypoventilation (3) Hypoventilation associated with obesity syndrome Current visit: Yes Status: Acute Category: Medical Code(s): E66.2 - Morbid (severe) obesity with alveolar hypoventilation (4) Pneumonia Current visit: Yes Status: Acute Category: Medical Code(s): J18.9 - Pneumonia, unspecified organism - Assessment and plan all Dx Assessment and Plan for all problems:: Responding to current therapy. Continue antibiotics. Wean oxygen today. Will give additional dose of steroid today. If showing improvement over the next 24 hours, transition oral antibiotics tomorrow to complete 7 additional days of Omnicef twice daily at home. Will have completed azithromycin tomorrow. Co ntinues to require inpatient management
[2019-06-06 09:37] LABS: Lymphocytes % 9 % (10-50); Monocytes % 3 % (2-9); Neutrophils % 88 % (42-76); Total Cells Counted 100
[2019-06-06 09:42] LABS: RBC Morphology Normal
--- NOTE | 2019-06-07 08:15 | Discharge Summary ---
General - General Admission date:: 06/05/19 Discharge date: 06/07/19 HPI HPI: 34-year-old white female with history of asthma, who has been treated with as needed albuterol nebulizer treatments over the past several years. She reports that she "used to take a daily inhaler" but apparently has not had 1 of these in a long time. She sees a primary physician in [place], [place] but has recently moved to [facility] and became short of air over the past couple of days at her home in spite of using her nebulizer machine a couple of times yesterday and this morning. She became very short of air today and came to the emergency department where she was found to have lobar pneumonia, dyspnea, tachycardia and asthma exacerbation and was admitted to the hospital. Hospital Course Hospital Course: Patient was admitted, placed on intravenous antibiotics and steroids and did well with this. Over the next couple of days she improved -and oxygen requirement was reduced. She was started back on inhaled corticosteroids and this seemed to improve. This morning she was feeling well, lung exam improved and she will be discharged home with follow-up with her regular physician and reinstitution of inhaled corticosteroids. Objective Vital signs: Temp Pulse Resp BP Pulse Ox 97.6 F 94 H 16 132/65 95 06/07/19 04:00 06/07/19 05:45 06/07/19 04:00 06/07/19 04:00 06/07/19 05:45 Narrative: Pleasant. Awake. Alert. Dressed in her normal clothing. Lungs have good air movement. Minimal expiratory rhonchi but vastly improved over her admission exam. Heart rate regular. Abdomen soft, morbid obesity limits her exam findings. Oropharynx clear. No JVD. Neurologic exam intact. Results Labs on day of discharge: Labs from last 24 hours 06/06/19 05:48 Total Counted 100 Neutrophils % (Manual) 88 H Lymphocytes % (Manual) 9 L Monocytes % (Manual) 3 Platelet Estimate Normal RBC Morphology Normal DS: Diagnosis - Discharge Diagnosis (1) Asthma with acute exacerbation Status: Acute (2) Pickwickian syndrome Status: Chronic (3) Hypoventilation associated with obesity syndrome Status: Chronic (4) Pneumonia Status: Acute Discharge Plan - Patient Discharge Instructions ACTIVITY: Continue current activity DIET: continue same diet Patient Instructions: Pneumonia-Adult, Asthma -- Adult, DI for Asthma -- Adult, DI for Pneumonia -- Adult - Follow up Plan Unknown provider or service follow up:: 06/07/19 08:15 Dr. Drake in [place] in 3-4 days Disposition: Home, Self-Detention Medications: Home Medications Medication Instructions Recorded Confirmed Type albuterol sulfate HFA 90 2 puff INHALATION Q6H PRN 08/16/18 06/05/19 History mcg/actuation aerosol inhaler Ergocalciferol (Vitamin D2) 50,000 unit PO WEEKLY 12/25/18 06/06/19 History [Drisdol] Fluoxetine HCl [Prozac] 20 mg PO DAILY 06/05/19 06/05/19 History Ropinirole HCl [Requip 0.25mg 0.25 mg PO HS 06/05/19 06/05/19 History Tablet] Cefdinir [Omnicef 300mg Capsule] 300 mg PO BID #14 cap 06/07/19 Rx Fluticasone/Salmeterol [Advair 1 inh IH BID #2 device 06/07/19 Rx 250/50mcg Diskus] predniSONE [Deltasone 20mg 20 mg PO BID 7 Days #14 tab 06/07/19 Rx tablet] Prescriptions/Medication Reconciliation: New predniSONE [Deltasone 20mg tablet] 20 mg PO BID 7 Days #14 tab Cefdinir [Omnicef 300mg Capsule] 300 mg PO BID #14 cap Fluticasone/Salmeterol [Advair 250/50mcg Diskus] 1 inh IH BID #2 device Continued albuterol sulfate HFA 90 mcg/actuation aerosol inhaler 2 puff INHALATION Q6H PRN PRN Reason: asthma Ergocalciferol (Vitamin D2) [Drisdol] 50,000 unit PO WEEKLY Fluoxetine HCl [Prozac] 20 mg PO DAILY Ropinirole HCl [Requip 0.25mg Tablet] 0.25 mg PO HS - Problem Reconciliation Problems Reviewed?: Yes
== END 2019-06-07 11:50 | disposition home or self-care (01) ==
LOC: 2ND 09:21 → ER 09:21 → 2ND 12:06
PROVIDERS: ADMIT Internal Medicine Adolescent Medicine; ATTEND Internal Medicine Adolescent Medicine
CPT/HCPCS: 36415; 71020; 71046; 80048; 83605; 84484; 85007; 85025; 87040; 87070; 87205; 93005; 94640; 94760; 94761; 96365; 96375; 99284; G0378; J0456; J2405